=== PATIENT | female | born 2000 | race Caucasian/White ===

== ENCOUNTER 2022-09-04 18:45 | Emergency (ER) | payer BC, SELFPAY ==
[2022-09-04] VITALS (29 sets, daily range): BP systolic 115–146; BP diastolic 72–105; PULSE 86–118; RESP 1–27; TEMP 36.8; O2SAT 97–100
--- NOTE | 2022-09-04 18:45 | RT.EKG_ITS ---
APPROVED REPORT Exam: Resting ECG Reason for Exam: chest pain Patient Location: E HR:99 bpm ECG Measurements Heart Rate 99 AXIS MT 146 P 72 QRSd 83 QRS 20 QT 330 T 41 QTc 423 Conclusion Sinus rhythm...normal P axis, V-rate 60- 99 sinus rhythm, normal axis, normal intervals, age appropriate anterior t wave inversions
--- NOTE | 2022-09-04 19:00 | DI.RAD_ITS ---
Exam(s) XR PORTABLE CHEST AP EXAM: XR PORTABLE CHEST AP CLINICAL HISTORY: cough. TECHNIQUE: 2D digital imaging was performed. COMPARISON: No exams were available for comparison FINDINGS: Single AP portable view. Heart size is upper normal. The mediastinum is not widened. Lungs are clear. No infiltrates nor obvious pleural effusions. IMPRESSION: No acute pulmonary findings on this single AP portable view of the chest. DATA REPOSITORY: RADIATION DOSE DELIVERED:
--- OUTSIDE RECORDS SUMMARY | 2022-09-04 19:00 | XMS_ITS | CCD ---
Author Name Unknown Address [address] [place] [address] [phone] Organization Unknown Address [address] [place] [address] [phone] Care Team Providers Care Supervisor [employer] Name Role Phone ABDI LICONA Attending Physician [phone] Vital Signs Unknown or Not Available. Allergies Unknown or Not Available. Procedures Unknown or Not Available. History of Immunizations Unknown or Not Available. Problems Unknown or Not Available. Results [facility] - [facility] ct Date/Time: 03/05/2021 09:30 Test Name Code Test Result Test Units Test Ref Rang e SOURCE= Anterior nasal N/A Tier- ALEXUS N/A SARS COV2 RNA: 63752-9 NEGATIVE N/A REFERENCE RANGE: NEGAT Active Medications Unknown or Not Available. Medications Administered During Visit Unknown or Not Available. Encounters Encounter Diagnosis Diagnosis Code Start Date CONTACT WITH AND SUSPECTED EXPOSURE TO COVID-19 [id number] 03/05/2021 Social History Smoking Status Code Start Date End Date Unknown if ever smoked [id number] Patient Decision Aids Unknown or Not Available. Discharge Instructions You were admitted to [facility] on 03/05/2021 19:41 with a principal diagnosis of Contact with and (suspected) exposure to COVID-19 You had the following tests done:GEREMIAS KELLEY You were discharged from [facility] on 03/05/2021 19:41 Should you have any questions prior to discharge, please contact a member of your healthcare team. If you have left the hospital and have any questions, please contact your primary care physician. Chief Complaint and Reason For Visit Unknown or Not Available. Function Status Unknown or Not Available. Plan of Care Unknown or Not Available. Referral/Transition of Care Unknown or Not Available.
--- OUTSIDE RECORDS SUMMARY | 2022-09-04 19:00 | XMS_ITS | CCD ---
Author Name Unknown Address [address] [place] [address] [phone] Organization Unknown Address [address] [place] [address] [phone] Care Team Providers Care Home Health Rn Name Role Phone ABDI LICONA Attending Physician [phone] Vital Signs Unknown or Not Available. Allergies Unknown or Not Available. Procedures Unknown or Not Available. History of Immunizations Unknown or Not Available. Problems Unknown or Not Available. Results GEREMIAS AKBARX* - [place] Date/Time: 07/23/2021 11:30 Test Name Code Test Result Test Units Test Ref Rang [facility] N/A SARS COV2 RNA: 21510-8 NEGATIVE N/A REFERENCE RANGE: NEGAT Active Medications Unknown or Not Available. Medications Administered During Visit Unknown or Not Available. Encounters Encounter Diagnosis Diagnosis Code Start Date Exposure to SARS-CoV-2 [id number] 2 Social History Smoking Status Code Start Date End Date Unknown if ever smoked [id number] Patient Decision Aids Unknown or Not Available. Discharge Instructions You were admitted to [facility] on 07/25/2021 22:34 with a principal diagnosis of Contact with and (suspected) exposure to COVID-19 You had the following tests done:GEREMIAS BERRYID RHEONIX* You were discharged from [facility] on 07/25/2021 22:34 Should you have any questions prior to [...]
[2022-09-04] MEDS: Albuterol/Ipratropium 3 ML UPD VIAL UPD (19:23)
[2022-09-04] MEDS: Dexamethasone 10 MG/ML VIAL IVP (19:23)
--- NOTE | 2022-09-04 19:36 | ED.GENADUL_ITS ---
Discharge Plan Disposition Patient Disposition: Home Discharge Details Chief Complaint: Chest Pain Clinical Impression: Cough Primary Care Provider: Agatha,Local ED Provider: Danny Mike Discharge Instructions Instructions: Acute Cough (ED) Additional Instructions: Please follow-up with your primary care physician. Please return to the emergency department for worsening symptoms. Medical Decision Making 21-year-old female history of asthma presents with over 1 week of cough occasionally productive of mucus nonbloody, presents with discomfort in her anterior throat when swallowing. No respiratory distress lungs clear bilaterally no wheezing, no chest wall crepitus, normal excursion, hemodynamically stable. Consider persistent viral respiratory illness versus pneumonia versus pleural effusion versus less likely Yajaira-Lopez or Boerhaave syndrome low suspicion for PE or ACS. Will obtain x-ray to assess for pneumothorax consolidation or effusion. Trial of nebs despite negative wheez ing. Likely home with close follow-up 20: 59 resting comfortably feeling some relief after dexamethasone and nebs. X- ray clear. Home care instructions and return precautions given HPI General Date/Time Provider Initiated Documentation: 09/04/22 18:47 . HPI Narrative: 21-year-old female history of asthma presents with cough over the past several weeks now associated with trouble swallowing feels discomfort in her anterior throat when she swallows, no nausea or vomiting. Multiple negative COVID tests at home. Related Data Allergies Allergy/AdvReac Type Severity Reaction Status Date / Time No Known Drug Allergies Allergy Unverified 09/04/22 19:00 General Stated Complaint: Chest Pain JAYLA: 3 Review of Systems Narrative: Review of Systems Constitutional: negative Eyes: negative ENT: negative Cardiovascular: negative Respiratory: Cough Gastrointestinal: Dysphagia : negative Musculoskeletal: negative Skin: negative Neurologic: negative Psych: negative PFSH All Active Problems (Updated 09/04/22 @ 21:01 by Danny Mike MD) Cough (Acute) Social History Smoking/Tobacco Use Status: Never Smoking risk assessment performed?: Yes Alcohol Intake: current Alcohol Intake frequency: a few times a week Alcohol type: hard liquor Drug use: Occasionally Substance use type: marijuana Do you feel safe at home: Yes Do you feel safe in your relationship?: Yes Exam Narrative Exam Narrative: Physical Examination General: alert, awake, cooperative, resting comfortably, no acute distress HEENT: normocephalic, atraumatic; PERRL, EOM intact, conjunctiva normal; no nasal discharge; moist mucous membranes, oral and pharyngeal mucosa normal, tolerating secretions Neck: supple, trachea midline; full ROM Chest: normal to inspection; no chest wall crepitus Respiratory: normal respiratory effort, speaking in full sentences, clear to auscultation, no wheezing, rales or rhonchi Cardiac: regular rate, regular rhythm, S1S2 intact, no murmurs rubs or gallops GI: abdomen soft, non-tender, non-distended; no palpable mass or hepatosplenomegaly Skin: no lesions, rashes or trauma appreciated Neuro: AAOx3, normal speech, moving all extremities Psych: Appropriate mood and affect Course Vital Signs Vital signs: Vital Signs Temperature 36.8 C 09/04/22 18:56 Pulse 115 H 09/04/22 18:56 Respiratory Rate 14 09/04/22 18:56 Blood Pressure 146/92 H 09/04/22 18:56 Pulse Oximetry 100 09/04/22 18:56 Temperature 36.8 C 09/04/22 18:56 Temperature Source Oral 09/04/22 18:56 Pulse 115 H 09/04/22 18:56 Respiratory Rate 14 09/04/22 18:56 Respiratory Effort Normal 09/04/22 19:12 Respiratory Depth Normal 09/04/22 19:10 Respiratory Pattern Normal 09/04/22 19:10 Blood Pressure 146/92 H 09/04/22 18:56 Blood Pressure Position Sitting 09/04/22 18:56 Pulse Oximetry 100 09/04/22 18:56 Oxygen Delivery Method Room Air 09/04/22 18:56 Oxygen Flow Rate 0 09/04/22 18:56 Pain Level 2 09/04/22 18:56 PAWSS Have you Been Recently Intoxicated or Drunk Within the Last 30 days?: No Have you Ever Experienced Previous Episodes of Alcohol Withdrawal?: No Have you ever Experienced Withdrawal Seizures?: No Have you ever Experienced Delirium Tremens(DT)s?: No Have you ever undergone Alcohol Rehabilitation Treatment (i.e, inpt ot outpatient treatment programs)?: No Have you ever Experienced Blackouts?: No Have you ever Combined Alcohol with other Downers within the last 90 days?: No Have you ever Combined Alcohol with any other Substance of Abuse during the last 90 days?: No Positive Blood Alcohol level on Presentation? [PCS.BAL]: No Evidence of Increased Autonomic Activity (i.e. HR>120, tremor, sweating, agitation, nausea)?: No Result: 0
--- NOTE | 2022-09-04 20:20 | DI.VRAD_ITS ---
PROCEDURE INFORMATION: Exam: XR Chest Exam date and time: 09/04/2022 7:22 PM Age: 21 years old Clinical indication: Cough TECHNIQUE: Imaging protocol: Radiologic exam of the chest. Views: 1 view. COMPARISON: No relevant prior studies available. FINDINGS: Lungs: Unremarkable. No consolidation. Pleural spaces: Unremarkable. No pleural effusion. No pneumothorax. Heart/Mediastinum: Unremarkable. No cardiomegaly. Bones/joints: Unremarkable. IMPRESSION: No acute findings. Dictated and Authenticated by: Bentley Rios MD. Ordering:DAVID Delgado MD
== END 2022-09-04 21:52 | disposition home or self-care (01) ==
PROVIDERS: Emergency Provider Emergency Medicine
DX: R05.1 Acute cough (principal); R06.02 Shortness of breath; R07.9 Chest pain, unspecified
CPT/HCPCS: 93005; 94640; 96374; 99284; 71045; 93010; J1100; J7620